=== PATIENT | male | born 1950 | race Caucasian/White ===

== ENCOUNTER 2023-01-10 08:09 | Inpatient (IN) ==
--- NOTE | 2022-12-21 10:26 | PAT Medication Instructions ---
Medication Instructions Date of Service December 21, 2022 Home Medications Medication Instructions Recorded cephalexin 500 mg capsule 500 mg PO BID #20 caps 06/18/22 diazepam 5 mg tablet 5 mg PO .COMPLEX #3 tabs 06/24/22 Medication List: amlodipine 10 mg tablet 10 mg PO PM aspirin 81 mg tablet,delayed release (Adult Aspirin Regimen) 81 mg PO PM atorvastatin 80 mg tablet 80 mg PO HS cholecalciferol (vitamin D3) 50 mcg (2,000 unit) tablet 1,000 units PO PM hydrochlorothiazide 25 mg tablet 25 mg PO PM lisinopril 40 mg tablet 40 mg PO PM metformin 1,000 mg tablet 500 mg PO QAM multivitamin (Multiple Vitamins tablet) 1 tab PO QAM omega-3 fatty acids 1,000 mg capsule 1,000 mg PO PM CBD drops 1 drp sublingual DIRECTED PRN Pain gabapentin 300 mg capsule 600 mg PO QAM gabapentin 300 mg capsule 900 mg PO HS gabapentin 300 mg capsule 900 mg PO PM cephalexin 500 mg capsule 500 mg PO BID diazepam 5 mg tablet 5 mg PO atenolol 25 mg tablet 75 mg PO PM cyanocobalamin (vitamin B-12) 1,000 mcg tablet 1,000 mcg PO PM empagliflozin 25 mg tablet (Jardiance) 25 mg PO DAILY fenofibrate nanocrystallized 145 mg tablet 145 mg PO DAILY hydrocodone 10 mg-acetaminophen 325 mg tablet 1 tab PO TID magnesium oxide 420 mg tablet 420 mg PO PM metformin 500 mg tablet 1,000 mg PO PM omeprazole 20 mg tablet,delayed release 20 mg PO QAM MEDICATION INSTRUCTIONS: Continue as directed diazepam 5 mg tablet 5 mg PO (if taking AM of surgery, take with small sip of water) cephalexin 500 mg capsule 500 mg PO BID (if taking AM of surgery, take with small sip of water) ASK your prescriber and surgeon aspirin 81 mg tablet,delayed release (Adult Aspirin Regimen) 81 mg PO PM STOP taking 2 weeks before surgery omega-3 fatty acids 1,000 mg capsule 1,000 mg PO PM STOP taking 24 hours before surgery fenofibrate nanocrystallized 145 mg tablet 145 mg PO DAILY DO NOT take the morning of surgery metformin 1,000 mg tablet 500 mg PO QAM multivitamin (Multiple Vitamins tablet) 1 tab PO QAM CBD drops 1 drp sublingual DIRECTED PRN Pain Take morning of surgery With a small sip of water, OTHERWISE NOTHING TO EAT OR DRINK AFTER MIDNIGHT: omeprazole 20 mg tablet,delayed release 20 mg PO QAM hydrocodone 10 mg-acetaminophen 325 mg tablet 1 tab PO TID gabapentin 300 mg capsule 600 mg PO QAM Take evening before surgery atorvastatin 80 mg tablet 80 mg PO HS cholecalciferol (vitamin D3) 50 mcg (2,000 unit) tablet 1,000 units PO PM hydrochlorothiazide 25 mg tablet 25 mg PO PM lisinopril 40 mg tablet 40 mg PO PM magnesium oxide 420 mg tablet 420 mg PO PM gabapentin 300 mg capsule 900 mg PO HS gabapentin 300 mg capsule 900 mg PO PM metformin 500 mg tablet 1,000 mg PO PM atenolol 25 mg tablet 75 mg PO PM cyanocobalamin (vitamin B-12) 1,000 mcg tablet 1,000 mcg PO PM amlodipine 10 mg tablet 10 mg PO PM hydrocodone 10 mg-acetaminophen 325 mg tablet 1 tab PO TID Other Notes STOP 3 DAYS BEFORE SURGERY: empagliflozin 25 mg tablet (Jardiance) 25 mg PO DAILY If you have any questions please call us at [phone] or [phone] or [phone] or [phone]
--- NOTE | 2022-12-27 11:15 | Anesthesiology Consultation ---
Date of Service December 27, 2022 Assessment & Plan (1) Encounter for pre-operative examination: Plan - check BSG am DOS. - anticipated difficult intubation: moderately limited cervical spine extension s/p cervical spine surgery, Mallampati 3 airway with small oral opening. - awaiting surgeon ordered medical clearance 12/29/22 [facility]. Creatinine 1.7 and A1c. PAT testing to be faxed to that office. - Per supervisor kennel on 12/17/2022: No known infectious disease contacts, current infectious disease symptoms in past 10 days or COVID positive test result in the past 90 days. Chart Review Chart Review: Pending: Refer to Additional Notes / Consult section and Patient NOT seen in Pre Admission Testing Teaching & Discussion Pre-Anesthesia Teaching/Discussion Notes: Instructed NPO after midnight before surgery, except medications with 15 cc of water. Medication instructions provided according to the PAT guidelines. History Surgery Operation Date: 01/10/23 07:45 Proposed Procedures p L3-L4 Decompression and Fusion with Spinal Cord Monitoring - Efra Blanco, Height/Weight Height: 6 ft Weight: 96.5 kg Allergies Allergy/AdvReac Type Severity Reaction Status Date / Time No Known Allergies Allergy Mild Verified 12/17/22 11:12 Medications Home Medications Medication Instructions Recorded Confirmed Last Taken amlodipine 10 mg tablet 10 mg PO PM 10/23/18 12/17/22 Unknown aspirin 81 mg tablet,delayed 81 mg PO PM 10/23/18 12/17/22 Unknown release (Adult Aspirin Regimen) atorvastatin 80 mg tablet 80 mg PO HS 10/23/18 12/17/22 Unknown cholecalciferol (vitamin D3) 50 1,000 units PO PM 10/23/18 12/17/22 Unknown mcg (2,000 unit) tablet hydrochlorothiazide 25 mg tablet 25 mg PO PM 10/23/18 12/17/22 Unknown lisinopril 40 mg tablet 40 mg PO PM 10/23/18 12/17/22 Unknown multivitamin (Multiple Vitamins 1 tab PO QAM 10/23/18 12/17/22 Unknown tablet) omega-3 fatty acids 1,000 mg 1,000 mg PO PM 10/23/18 12/17/22 Unknown capsule CBD drops 1 drp sublingual DIRECTED PRN 06/12/21 12/17/22 Unknown Pain gabapentin 300 mg capsule 600 mg PO QAM 06/12/21 12/17/22 Unknown gabapentin 300 mg capsule 900 mg PO HS 06/12/21 12/17/22 Unknown gabapentin 300 mg capsule 900 mg PO PM 07/29/21 12/17/22 Unknown cephalexin 500 mg capsule 500 mg PO BID #20 caps 06/18/22 12/17/22 Unknown diazepam 5 mg tablet 5 mg PO .COMPLEX #3 tabs 06/24/22 12/17/22 Unknown atenolol 25 mg tablet 75 mg PO PM 08/12/22 12/17/22 Unknown cyanocobalamin (vitamin B-12) 1,000 mcg PO PM 08/12/22 12/17/22 Unknown 1,000 mcg tablet empagliflozin 25 mg tablet 25 mg PO DAILY 08/12/22 12/17/22 Unknown (Jardiance) fenofibrate nanocrystallized 145 145 mg PO DAILY 08/12/22 12/17/22 Unknown mg tablet hydrocodone 10 mg-acetaminophen 1 tab PO TID 08/12/22 12/17/22 Unknown 325 mg tablet magnesium oxide 420 mg tablet 420 mg PO PM 08/12/22 12/17/22 Unknown metformin 500 mg tablet 500 mg PO BID 08/12/22 12/27/22 Unknown omeprazole 20 mg tablet,delayed 20 mg PO QAM 08/12/22 12/17/22 Unknown release Past Medical History Medical History (Updated 12/27/22 @ 11:41 by Alise Arenas, TATIANA) Aortic stenosis Mild valvular aortic stenosis (YUSUF 1.8 cm2, mean PG 13.5 mmHg) CAD (coronary artery disease) stents x2 (1999), does not follow with cardiology Cervical pain stable per pt, positional; s/p cervical spine surgery Diabetes mellitus, type 2 NIDDM Expected difficult intubation moderately limited cervical spine extension s/p cervical spine surgery, Mallampati 3 airway with small oral opening. GERD (gastroesophageal reflux disease) controlled, stable per pt Hip pain stable per pt History of heart attack 1999 > stents x2 HTN (hypertension) controlled, stable per pt Hyperlipemia Lumbar pain Pulmonary hypertension RVSP 30-40 mmHG Spinal stenosis Patient denies h/o stroke, seizures, heart failure, blood clots/DVTs or blood transfusions. Exercise / Class Metabolic Activity II 4-5 Yardwork/Stairs/Walk up hill (denies chest discomfort or shortness of breath with 1 FOS) Past Family History Family History Father Colon cancer Past Surgical History Surgical History (Updated 12/27/22 @ 11:32 by Alise Arenas PA-C) H/O cervical spine surgery limited ROM H/O Spinal surgery lumbar fusion History of appendectomy History of cardiac cath 1999 > stents x2 History of heart artery stent 2000 > stents x2 History of tooth extraction S/P insertion of spinal cord stimulator trial one only (since removed after 5 days) Past Anesthesia History No Hx of Anesthesia Complications and Other (pt denies anesthesia complications in family history, mother had hepatitis and passed during a surgery due to hepatic complications per pt) History of PONV No Hx of PONV and No Hx of Motion Sickness Social History Smoking Status: Current every day smoker (-advised) tobacco type: cigarettes Smoking cigarettes per day: 2 ppd Do You Dip or Chew Tobacco: No Hx Alcohol Use: Yes Alcohol type: beer alcohol intake frequency: holidays/special occasions only Hx Substance Use: Yes substance use type: marijuana Substance Use Type Other:: marijuana > "special occasions"-advised Review of Systems Patient denies chest pain, shortness of breath, dyspnea on exertion, snoring, witnessed apneas, fever, chills, cough, wheezing, or palpitations. Physical Exam Vital Signs Vitals BP 132/74 P 50 TEMP 98.4 SP02 97% on RA RESP 17 Physical Patient resting comfortably in chair in no acute distress, alert and oriented, responding appropriately throughout visit Moderately limited cervical extension range of motion without pain TMD 3.5 finger breadths Mallampati Score 3, small oral opening Dentition: edentulous Lungs: normal respiratory effort. Good air movement, clear throughout to auscultation, no adventitious breath sounds Cardiac: regular rate and rhythm, 2/6 systolic murmur, no gallops or rubs Carotid arteries: negative bruit bilat Lab Results Anesthesia Preop Results Results Anesthesia Widget: WBC 7.44 K/ul (4.8-10.8) 12/27/22 Hgb 16.4 g/dl (14.0-18.0) 12/27/22 Hct 48.1 % (42.0-52.0) 12/27/22 Plt 399 K/uL (130-400) 12/27/22 Na 138 mmol/L (136-145) 12/27/22 K 4.6 mmol/L (3.5-5.1) 12/27/22 Cl 103 mmol/L (98-107) 12/27/22 CO2 26 mmol/L (21-32) 12/27/22 BUN 31 mg/dl (6-23) H 12/27/22 Creat 1.70 mg/dl (0.6-1.4) H 12/27/22 Glucose Level 205 mg/dl (70-99(Fasting)) H 12/27/22 PT 11.3 Seconds (9.0-12.0) 12/27/22 PTT 27.6 Seconds (21.0-31.0) 12/27/22 INR 1.0 (0.9-1.1) 12/27/22 HA1c 7.9 % (4.5-5.6) H 12/27/22 Urine Color Yellow 12/27/22 Urine Appearance Clear (Clear) 12/27/22 Urine pH 6.5 (4.5-7.5) 12/27/22 Urine Specific [place] 1.029 (1.000-1.030) 12/27/22 Urine Protein Negative (Negative) 12/27/22 Urine Glucose (UA) 3+ (Negative) H 12/27/22 Urine Ketones Negative (Negative) 12/27/22 Urine Blood 2+ (Negative) H 12/27/22 Urine Nitrite Negative (Negative) 12/27/22 Urine Bilirubin Negative (Negative) 12/27/22 Urine Urobilinogen Negative (Negative) 12/27/22 Urine Leukocyte Esterase Negative (Negative) 12/27/22 Urine WBC (Auto) 0 /hpf (0-5) 12/27/22 Urine RBC (Auto) 5-10 /hpf (0-4) H 12/27/22 Urine Hyaline Casts (Auto) 0 /lpf (0-5) 12/27/22 Urine Epithelial Cells (Auto) 0-5 /lpf (0-5) 12/27/22 Urine Bacteria (Auto) Negative (Negative) 12/27/22 Blood Type A Positive 12/27/22 Antibody Screen NEGATIVE 12/27/22 Testing Electrocardiogram Date: 12/27/22 Sinus bradycardia, rate 47 bpm Minimal voltage criteria for LVH, may be normal variant Chest X-Ray Date: 12/27/22 No acute process. Echocardiogram Date: 10/26/17 EF 65-70% Mild cLVH Mildly dilated RV Mild valvular aortic stenosis (YUSUF 1.8 cm2, mean PG 13.5 mmHg) Moderate aortic regurgitation Mild mitral regurgitation Mild pulmonary hypertension RVSP elevated at 30-40 mmHg
[~2023-01-10 08:09] MED LIST: ACETAMINOPHEN 500 MG TAB PO SCH; CeleBREX 200 MG CAP PO SCH; GABAPENTIN 300 MG CAP PO SCH; KETAMINE 50 MG/5 ML SYRINGE ONE; LR 15ML/HR IV SCH; LR 60ML/HR IV SCH; ceFAZolin 2000MG 2,000 MG/15 ML SYR IV SCH
[2023-01-10] MEDS ORDERED: ePHEDrine sulfate 50 MG/ML AMP IV PRN (09:14)
[2023-01-10] MEDS ORDERED: ATROPINE SULFATE 0.1 MG/ML 10ML SYR IV PRN (09:14)
[2023-01-10] MEDS ORDERED: ONDANSETRON INJ 2 MG/ML 2 ML VIAL IV PRN ×2 (09:14→14:32)
--- NOTE | 2023-01-10 09:18 | History & Physical Bridge Note ---
Date of Service January 10, 2023 History & Physical Bridge Note I have examined the patient, reviewed the History & Physical and in the interval since the performance of the History & Physical I have noted the following changes of clinical significance: no changes noted
--- NOTE | 2023-01-10 09:19 | History & Physical Report ---
Date of Service January 10, 2023 Assessment & Plan (1) Lumbar spinal stenosis: Plan: L3-L4 decompression and fusion History of Present Illness Chief Complaint: Back and bilateral leg pain Primary Care Provider: [facility] This is a 72-year-old male who presents with chronic persistent back and leg pain after failing since course of nonoperative care is here for surgical invention. Allergies Allergy/AdvReac Type Severity Reaction Status Date / Time No Known Allergies Allergy Mild Verified 01/10/23 08:32 Home Medications Medication Instructions Recorded Confirmed Type amlodipine 10 mg tablet 10 mg PO PM 10/23/18 12/17/22 History aspirin 81 mg tablet,delayed 81 mg PO PM 10/23/18 12/17/22 History release (Adult Aspirin Regimen) atorvastatin 80 mg tablet 80 mg PO HS 10/23/18 12/17/22 History cholecalciferol (vitamin D3) 50 1,000 units PO PM 10/23/18 12/17/22 History mcg (2,000 unit) tablet hydrochlorothiazide 25 mg tablet 25 mg PO PM 10/23/18 01/10/23 History lisinopril 40 mg tablet 40 mg PO PM 10/23/18 01/10/23 History multivitamin (Multiple Vitamins 1 tab PO QAM 10/23/18 01/10/23 History tablet) omega-3 fatty acids 1,000 mg 1,000 mg PO PM 10/23/18 01/10/23 History capsule CBD drops 1 drp sublingual DIRECTED PRN 06/12/21 12/17/22 History Pain gabapentin 300 mg capsule 600 mg PO QAM 06/12/21 01/10/23 History gabapentin 300 mg capsule 900 mg PO HS 06/12/21 01/10/23 History gabapentin 300 mg capsule 900 mg PO PM 07/29/21 01/10/23 History cephalexin 500 mg capsule 500 mg PO BID #20 caps 06/18/22 12/17/22 Rx diazepam 5 mg tablet 5 mg PO .COMPLEX #3 tabs 06/24/22 12/17/22 Rx atenolol 25 mg tablet 75 mg PO PM 08/12/22 12/17/22 History cyanocobalamin (vitamin B-12) 1,000 mcg PO PM 08/12/22 12/17/22 History 1,000 mcg tablet empagliflozin 25 mg tablet 25 mg PO DAILY 08/12/22 01/10/23 History (Jardiance) fenofibrate nanocrystallized 145 145 mg PO DAILY 08/12/22 01/10/23 History mg tablet hydrocodone 10 mg-acetaminophen 1 tab PO TID 08/12/22 01/10/23 History 325 mg tablet magnesium oxide 420 mg tablet 420 mg PO PM 08/12/22 01/10/23 History metformin 500 mg tablet 500 mg PO BID 08/12/22 01/10/23 History omeprazole 20 mg tablet,delayed 20 mg PO QAM 08/12/22 01/10/23 History release Past Med/Surg History Medical History Expected difficult intubation moderately limited cervical spine extension s/p cervical spine surgery, Mallampati 3 airway with small oral opening. Pulmonary hypertension RVSP 30-40 mmHG Aortic stenosis Mild valvular aortic stenosis (YUSUF 1.8 cm2, mean PG 13.5 mmHg) CAD (coronary artery disease) stents x2 (1999), does not follow with cardiology Spinal stenosis GERD (gastroesophageal reflux disease) controlled, stable per pt Diabetes mellitus, type 2 NIDDM History of heart attack 1999 > stents x2 Cervical pain stable per pt, positional; s/p cervical spine surgery Hyperlipemia HTN (hypertension) controlled, stable per pt Hip pain stable per pt Lumbar pain Surgical History History of tooth extraction History of heart artery stent 2000 > stents x2 History of cardiac cath 1999 > stents x2 S/P insertion of spinal cord stimulator trial one only (since removed after 5 days) H/O cervical spine surgery limited ROM History of appendectomy H/O Spinal surgery lumbar fusion Family History Father Colon cancer Social History Smoking Status: Current every day smoker (-advised) Cigarettes Per Day: 2 ppd; Second Hand Exposure: No; Do You Dip or Chew Tobacco: No; Tobacco Cessation Education Requested by Patient: No Hx Alcohol Use: Yes Alcohol type: beer Hx Substance Use: Yes Substance Use Type Other:: marijuana > "special occasions"-advised Preferred Language: Belgian Communication Ability: Effective Hearing Ability: Normal Internet Retailer Required: No Beliefs That Will Affect Care: None marital status: Current Living Situation: Spouse current occupational status: retired Feels Safe at Home: Yes Safety Concerns: Feels Safe At This Time Assistive Devices: Cane, Denture - Upper, Denture - Lower and Glasses Assistive Devices Comment: cane prn Physical Exam Physical Exam: Patient is alert and oriented Heart regular rhythm Lungs clear Results & Data Results & Data Vital Signs (Past 12 Hours) Vital Signs Temp Pulse Resp BP Pulse Ox O2 Del Method 01/10/23 08:38 36.4 C L 46 L 20 173/81 H 96 Room Air
[2023-01-10] MEDS ORDERED: fentaNYL citrate PF 100 MCG/2 ML VIAL ONE (09:22)
[2023-01-10] MEDS ORDERED: MIDAZOLAM HCL 1 MG/ML 2ML VIAL ONE (09:22)
[2023-01-10] MEDS ORDERED: BUPIVACAINE/EPINEPHRINE 0.25% 1:200,000 30 ML VIAL ONE (09:35)
[2023-01-10] MEDS ORDERED: ceFAZolin 330 MG/ML 1 GM VIAL ONE (09:36)
[2023-01-10] MEDS ORDERED: GLYCOPYRROLATE 0.2 MG/ML VIAL ONE (10:32)
[2023-01-10] MEDS ORDERED: ONDANSETRON INJ 2 MG/ML 2 ML VIAL ONE (10:32)
[2023-01-10] MEDS ORDERED: NEOSTIGMINE METHYLSULFATE 1 MG/ML 10ML VIAL ONE (10:32)
[2023-01-10] MEDS ORDERED: PROPOFOL IV EMULSION 10 MG/ML 20 ML VIAL IV ONE (10:32)
[2023-01-10] MEDS ORDERED: SUCCINYLCHOLINE CHLORIDE 20 MG/ML 10 ML VIAL IV ONE (10:32)
[2023-01-10] MEDS ORDERED: PHENYLEPHRINE HCL 10 MG/ML VIAL ONE (10:32)
[2023-01-10] MEDS ORDERED: DEXAMETHASONE SOD INJ 4 MG/ML VIAL ONE (10:32)
[2023-01-10] MEDS ORDERED: ePHEDrine sulfate 50 MG/ML AMP ONE (10:32)
[2023-01-10] MEDS ORDERED: LIDOCAINE 2% 2 ML VIAL/AMP(20MG/ML) INFIL ONE (10:32)
[2023-01-10] MEDS ORDERED: ROCURONIUM BROMIDE 10 MG/ML 5 ML VIAL IV ONE ×2 (10:33→10:35)
[2023-01-10] MEDS ORDERED: SUGAMMADEX SODIUM 200 MG/2 ML VIAL IV ONE (10:33)
[2023-01-10] MEDS ORDERED: PHENYLEPHRINE 100MCG/ML 10ML SYR IV ONE (10:36)
[2023-01-10] MEDS ORDERED: FLOSEAL HEMOSTATIC MATRIX 10ML TOP ONE (10:48)
--- NOTE | 2023-01-10 11:40 | Operative Report ---
Post Operative Report Pre & Post Diagnosis Operation Date: 01/10/23 09:35 Pre-Op Diagnosis: Lumbar spinal stenosis with neurogenic claudication Post-Op Diagnosis: Same I identified the patient and participated in the time-out.: Yes Procedure Operation Date: 01/10/23 09:35 Actual Procedures #1 lumbar decompression bilaterally facetectomies and foraminotomies L2-L3 L3- L4. #2 posterior spinal fusion L3-L4 per #3 placed posterior instrumentation L3-4. #4 interbody fusion L3-L4. #5 placement of Spira 12 x 26 mm at L3-L4 vertebra 6 placement locally harvested morselized autograft in the posterior gutters. #7 placement I factor interbody space and infuse collagen sponge, mass graft and posterior gutters. Surgeon Efra Blanco DO Managing Director Linda Agustin Estimated Blood Loss 200 Findings Consistent with Post-Op Diagnosis Specimens None Indications This is a 59-year-old male who presents bones diagnosis of failing since course of nonoperative care is here for surgical invention. Description of Procedure Patient was met with identified informed consent obtained. Patient was then taken to the operative suite underwent ablation placed in a prone position to check stable topicals and frame. All bony promises well-padded eyes inspected to ensure no external pressure placed upon up at this point the lumbar spine was prepped and draped in normal sterile fashion. Sharp dissection with the assistance of Bovie cautery form down to and exposing the lamina transverse pr ocesses of L3-L4. From caudal cephalad fashion complete laminectomy L3 partial and active L2 was performed including bilateral male facetectomies and foraminotomies addressing severe spinal stenosis. Pedicle screws were then placed in L2-L3 bilaterally with assistance of fluoroscopy and the properly sized ofelia placed. By way of transforaminal approach on the right complete discectomy of L3-L4 was performed endplates guarded to subcortical bleeding bone and a 12 x 26 mm Spira cage with I factor tapped in position. The rods were then locked in final position bilaterally. The transverse processes of L3-L4 burred to subcortical bone. Infuse collagen sponge, mass graft and local graft placed in the posterior gutters. 15 round DO drain inserted. The incision was then closed with 1 Vicryl and fascia 2-0 Vicryl subcutaneously and Fortical for final skin closure. Steri-Strips sterile dressing placed. Patient waken taken PACU stable condition. Please note spinal cord monitoring was utilized at the procedure no changes noted. Lastly Linda Agustin was present at the entire surgeon with the patient positioning complex portion of the surgery and final skin closure. I attest to the content of the Intraoperative Record and any orders documented therein. Any exceptions are noted below.
[2023-01-10] MEDS: HYDROmorphone INJ 2 MG/ML SYR/VIAL IV PRN ×3 (12:10→12:25)
--- NOTE | 2023-01-10 12:14 | Fluoroscopy Report ---
FL lumbar spine 2-3V CLINICAL HISTORY: L3-L4 DECOMP/FUSION TECHNIQUE: 2 views were obtained with the C-arm in the OR with the above procedure. Total fluoroscopy time was 16.5 seconds. Radiation dose was 11.97 mGy. Comparison: Comparison is made to MRI lumbar spine 09/03/2022 FINDINGS/IMPRESSION: Intraoperative images were obtained of L3-L4 discectomy and fusion. Please correlate with intraoperative fluoroscopy and operative report. ACT 112: Negative or not required by law. Electronically signed by: Miky Stover M.D. 01/10/2023 12:13 PM
--- NOTE | 2023-01-10 12:49 | Anesthesiology Progress Note ---
Date of Service January 10, 2023 Anesthesia Post Procedure Vital Signs Vital Signs: Temp Pulse Resp BP BP Pulse Ox O2 Del Method 01/10/23 12:40 53 L 12 125/58 L 92 Nasal Cannula 01/10/23 12:30 62 12 133/64 94 Room Air 01/10/23 12:20 62 16 139/69 94 Room Air 01/10/23 12:10 61 15 96/55 L 95 Oxymask 01/10/23 12:00 62 12 137/67 100 Oxymask 01/10/23 11:55 60 12 138/68 100 Oxymask 01/10/23 11:49 36.2 C L 62 12 157/66 H 100 Oxymask 01/10/23 08:38 36.4 C L 46 L 20 173/81 H 96 Room Air O2 Flow Rate 01/10/23 12:40 2 01/10/23 12:30 01/10/23 12:20 01/10/23 12:10 2 01/10/23 12:00 3 01/10/23 11:55 6 01/10/23 11:49 6 01/10/23 08:38 Pain Intensity Back: Pain Intensity: 5 Transfer of Care Handoff Completed per policy Notes Mental Status: alert / awake / arousable Patient Amnestic to Procedure: Yes Nausea / Vomiting: adequately controlled Pain: adequately controlled Airway Patency, RR, SpO2: stable & adequate BP & HR: stable & adequate Hydration State: stable & adequate Anesthetic Complications: no major complications apparent and Pt Satisfied with anesthetic care
[2023-01-10] MEDS ORDERED: DO NOT ADMINISTER PNEUMOCOCCAL VACCINE PRN (14:32)
[2023-01-10] MEDS ORDERED: hydrOXYzine HCl 25 MG TAB PO PRN (14:32)
[2023-01-10] MEDS ORDERED: SOD PHOSPHATE/SOD BIPHOSPHATE ENEMA 132 ML BTL PR PRN (14:32)
[2023-01-10] MEDS ORDERED: diphenhydrAMINE Capsule 25 MG CAP PO PRN (14:32)
[2023-01-10] MEDS ORDERED: LORazepam 0.5 MG in SYRINGE 0.25 ML IV PRN (14:32)
[2023-01-10] MEDS ORDERED: ACETAMINOPHEN 500 MG TAB PO PRN (14:32)
[2023-01-10] MEDS ORDERED: ONDANSETRON 4 MG OD TAB PO PRN (14:32)
[2023-01-10] MEDS ORDERED: NALOXONE HCL 0.4 MG/1 ML VIAL/CARP IV PRN (14:32)
[2023-01-10] MEDS ORDERED: DO NOT ADMINISTER FLU VACCINE PRN (14:32)
[2023-01-10] MEDS ORDERED: ALUMINUM/MAGNESIUM SUSP 30 ML UDC PO PRN (14:32)
[2023-01-10] MEDS ORDERED: FAMOTIDINE 20 MG TAB PO PRN (14:32)
[2023-01-10] MEDS ORDERED: ACETAMINOPHEN 1,000 MG/100 ML VIAL IV PRN (14:32)
[2023-01-10] MEDS ORDERED: oxyCODONE HCL IR 5 MG TAB (IMMEDIATE RELEASE) PO PRN (14:32)
[2023-01-10] MEDS ORDERED: MAGNESIUM HYDROXIDE SUSP 30 ML UDC PO PRN (14:32)
[2023-01-10] MEDS ORDERED: LORazepam 0.5 MG TAB PO PRN (14:32)
[2023-01-10] MEDS ORDERED: HYDROmorphone INJ 1 MG/ML SYRINGE IV PRN (14:32)
[2023-01-10] MEDS ORDERED: HYDROmorphone INJ 0.5 MG/0.5 ML SYR IV PRN (14:32)
[2023-01-10] MEDS ORDERED: METOCLOPRAMIDE HCL INJ 5 MG/ML 2 ML VIAL IV PRN (14:32)
[2023-01-10] MEDS ORDERED: PROMETHAZINE HCL 12.5 MG in SODIUM CHLORIDE 0.9% 50 ML IV PRN (14:32)
[2023-01-10] MEDS: SODIUM CHLORIDE 0.9% 1,000 ML IV SCH (16:14)
--- NOTE | 2023-01-10 16:19 | Consultation ---
Date of Consultation January 10, 2023 Assessment & Plan (1) Lumbar spinal stenosis: (2) Diabetes mellitus, type 2: (3) CAD (coronary artery disease): (4) Pulmonary hypertension: (5) Aortic stenosis: (6) Tobacco abuse: (7) HTN (hypertension): (8) Hyperlipemia: Plan Mr. Nobles is a 72 year old male that presents to the [facility] for an elective decompression and fusion surgery under the care of Dr. Blanco after failed conservative outpatient therapy for lumbar spinal stenosis with neurogenic claudication. He underwent an L2-L3; L3-L4 decompression and fusion. Additional PMH includes: NIDDM2, HTN, HLD, tobacco use, and GERD. Additional PMH includes previous AMI s/p stent placement x2 in 1999. Pt sitting upright in his hospital bed in no apparent distress. He just finished eating a clear liquid diet without any symptoms, including nausea. Pt is passing flatulence. Denies CHENG, neuropathy, dizziness, CP, SOB, abdominal pain, recent falls or trauma. Lumbar spinal stenosis: POD# 0 s/p decompression/fuson L2-L3; L3-L4 with Dr. Blanco. Per ortho for pain control, wound care, anticoagulation and activities. Monitor H&H, pre op Hgb 16.4 on 12/27/22 continue incentive spirometry PT/OT when appropriate CAD: H/O AMI s/p stents x2 Chronic stable stents were placed in 1999 Takes a baby ASA; continue HTN: chronic stable Takes HCTZ, Atenolol, Lisinopril, and Amlodipine; continue HLD: chronic stable takes atorvastatin; continue DM2: Chronic stable Takes Metformin and Jardiance; hold while inpt Place on SSI ACHS while inpt and resume home meds on DC Tobacco use: chronic stable 1 ppd at most; declines Nicotine patch Disposition: PCP: [place] Code status: Full code VTE Prophylaxis: per admitting team I spent a total of 60 minutes coordinating, documenting, and providing care for this patient excluding time spent in the performance of separately billed ser vices. All of the aforementioned completed while collaborating with the assigned attending physician for a full treatment plan. Please see their addendum for further details. Supervising Physician Co-Signing Physician Notes I have seen and examined the patient and have discussed the case with the provider above. I agree with the assessment and plan as stated. Sal[place], DO History of Present Illness Requesting Physician: Dr. Blanco Reason for Consultation: post operative medical management Attending Physician: Efra Blanco DO History of Present Illness Mr. Nobles is a 72 year old male that presents to the [facility] for an elective decompression and fusion surgery under the care of Dr. Blanco after failed conservative outpatient therapy for lumbar spinal stenosis with neurogenic claudication. He underwent an L2-L3; L3-L4 decompression and fusion. Additional PMH includes: NIDDM2, HTN, HLD, tobacco use, and GERD. Additional PMH includes previous AMI s/p stent placement x2 in 1999. Pt sitting upright in his hospital bed in no apparent distress. He just finished eating a clear liquid diet without any symptoms, including nausea. Pt is passing flatulence. Denies CHENG, neuropathy, dizziness, CP, SOB, abdominal pain, recent falls or trauma. [facility] Hospitalist Service was consulted for post operative medical management. Thank you kindly for consulting us. We are available 20/09 via [place] Text for any questions or concerns. Allergies Allergy/AdvReac Type Severity Reaction Status Date / Time No Known Allergies Allergy Mild Verified 01/10/23 08:32 Home Medications Medication Instructions Recorded Confirmed Type amlodipine 10 mg tablet 10 mg PO PM 10/23/18 01/10/23 History aspirin 81 mg tablet,delayed 81 mg PO PM 10/23/18 01/10/23 History release (Adult Aspirin Regimen) atorvastatin 80 mg tablet 80 mg PO HS 10/23/18 01/10/23 History cholecalciferol (vitamin D3) 50 1,000 units PO PM 10/23/18 01/10/23 History mcg (2,000 unit) tablet hydrochlorothiazide 25 mg tablet 25 mg PO PM 10/23/18 01/10/23 History lisinopril 40 mg tablet 40 mg PO PM 10/23/18 01/10/23 History multivitamin (Multiple Vitamins 1 tab PO QAM 10/23/18 01/10/23 History tablet) omega-3 fatty acids 1,000 mg 1,000 mg PO PM 10/23/18 01/10/23 History capsule CBD drops 1 drp sublingual DIRECTED PRN 06/12/21 01/10/23 History Pain gabapentin 300 mg capsule 600 mg PO QAM 06/12/21 01/10/23 History gabapentin 300 mg capsule 900 mg PO HS 06/12/21 01/10/23 History gabapentin 300 mg capsule 900 mg PO PM 07/29/21 01/10/23 History cephalexin 500 mg capsule 500 mg PO BID #20 caps 06/18/22 01/10/23 Rx diazepam 5 mg tablet 5 mg PO .COMPLEX #3 tabs 06/24/22 01/10/23 Rx atenolol 25 mg tablet 75 mg PO PM 08/12/22 01/10/23 History cyanocobalamin (vitamin B-12) 1,000 mcg PO PM 08/12/22 01/10/23 History 1,000 mcg tablet empagliflozin 25 mg tablet 25 mg PO DAILY 08/12/22 01/10/23 History (Jardiance) fenofibrate nanocrystallized 145 145 mg PO DAILY 08/12/22 01/10/23 History mg tablet hydrocodone 10 mg-acetaminophen 1 tab PO TID 08/12/22 01/10/23 History 325 mg tablet magnesium oxide 420 mg tablet 420 mg PO PM 08/12/22 01/10/23 History metformin 500 mg tablet 500 mg PO BID 08/12/22 01/10/23 History omeprazole 20 mg tablet,delayed 20 mg PO QAM 08/12/22 01/10/23 History release Patient History Medical History (Updated 01/10/23 @ 16:15 by DAWIT Hanson) Expected difficult intubation moderately limited cervical spine extension s/p cervical spine surgery, Mallampati 3 airway with small oral opening. Pulmonary hypertension RVSP 30-40 mmHG Aortic stenosis Mild valvular aortic stenosis (YUSUF 1.8 cm2, mean PG 13.5 mmHg) CAD (coronary artery disease) stents x2 (1999), does not follow with cardiology Spinal stenosis GERD (gastroesophageal reflux disease) controlled, stable per pt Diabetes mellitus, type 2 NIDDM History of heart attack 1999 > stents x2 Cervical pain stable per pt, positional; s/p cervical spine surgery Hyperlipemia HTN (hypertension) controlled, stable per pt Hip pain stable per pt Lumbar pain Surgical History History of tooth extraction History of heart artery stent 1999 > stents x2 History of cardiac cath 1999 > stents x2 S/P insertion of spinal cord stimulator trial one only (since removed after 5 days) H/O cervical spine surgery limited ROM History of appendectomy H/O Spinal surgery lumbar fusion Family History Father Colon cancer Social History Smoking Status: Current every day smoker Tobacco Type: Cigarettes Cigarettes Per Day: 2 ppd; Second Hand Exposure: No; Do You Dip or Chew Tobacco: No; Tobacco Cessation Education Requested by Patient: No Hx Alcohol Use: Yes Alcohol type: beer, wine and hard liquor Hx Substance Use: No Preferred Language: Guyanese Communication Ability: Effective Hearing Ability: Normal Hose Seamer Required: No Beliefs That Will Affect Care: None marital status: Current Living Situation: Spouse current occupational status: retired Feels Safe at Home: Yes Safety Concerns: Feels Safe At This Time Assistive Devices: None, Denture - Upper, Denture - Lower and Glasses Assistive Devices Comment: cane prn Review of Systems Review of Systems: Neuro: (-) Falls, trauma, slurred speech HEENT: (-) CHENG, dizziness, dysphagia, visual or auditory changes CV: (-) CP, palpitations, swelling Resp: (-) SOB GI: (-) appetite changes, N/V/D, bowel changes : (-) urinary changes Skin: (-) rashes Psych: (-) anxiety, depression Physical Exam Physical Exam: Neuro: AAOx4, PERRLA, no aphagia, memory changes, CNII-XII grossly intact HEENT: head normocephalic, moist mucus membranes CV: S1/S2, (-) M/G/R, (-) edema, cap refill < 3 seconds DO drain x1 Resp: Lungs CTA in all hernandez. On RA GI: Abdomen S/NT/ND, Ax4 bowel sounds, (-) CVA tenderness Musculoskeletal: 5/5 B/L UE strength, 5/5 B/L LE strength. No gait disturbance Skin: (-) rashes , (-) erythema.vertical surgical incision covered with gauze and abd pad with dressing; no overt drainage/C/D/I Psych: euthymic mood Results & Data Vital Signs (Past 12 Hours) Vital Signs Temp Pulse Pulse Resp BP BP Pulse Ox 01/10/23 16:00 36.4 C L 71 18 132/70 94 01/10/23 15:39 36.4 C L 01/10/23 15:00 59 L 14 134/64 94 01/10/23 14:00 62 14 128/52 L 93 01/10/23 13:45 59 L 13 122/64 93 01/10/23 13:30 55 L 13 122/56 L 92 01/10/23 13:15 55 L 12 114/56 L 92 01/10/23 13:00 54 L 12 119/53 L 92 01/10/23 12:50 55 L 13 123/57 L 92 01/10/23 12:40 53 L 12 125/58 L 92 01/10/23 12:30 62 12 133/64 94 01/10/23 12:20 62 16 139/69 94 01/10/23 12:10 61 15 96/55 L 95 01/10/23 12:00 62 12 137/67 100 01/10/23 11:55 60 12 138/68 100 01/10/23 11:49 36.2 C L 62 12 157/66 H 100 01/10/23 08:38 36.4 C L 46 L 20 173/81 H 96 O2 Del Method O2 Flow Rate 01/10/23 16:00 Nasal Cannula 2 01/10/23 15:39 01/10/23 15:00 Nasal Cannula 2 01/10/23 14:00 Nasal Cannula 2 01/10/23 13:45 Nasal Cannula 2 01/10/23 13:30 Nasal Cannula 2 01/10/23 13:15 Nasal Cannula 2 01/10/23 13:00 Nasal Cannula 2 01/10/23 12:50 Nasal Cannula 2 01/10/23 12:40 Nasal Cannula 2 01/10/23 12:30 Room Air 01/10/23 12:20 Room Air 01/10/23 12:10 Oxymask 2 01/10/23 12:00 Oxymask 3 01/10/23 11:55 Oxymask 6 01/10/23 11:49 Oxymask 6 01/10/23 08:38 Room Air Diagnostic Findings Lumbar Spine X-Ray 01/10/23 00:00 FL lumbar spine 2-3V CLINICAL HISTORY: L3-L4 DECOMP/FUSION TECHNIQUE: 2 views were obtained with the C-arm in the OR with the above procedure. Total fluoroscopy time was 16.5 seconds. Radiation dose was 11.97 mGy. Comparison: Comparison is made to MRI lumbar spine 09/03/2022 FINDINGS/IMPRESSION: Intraoperative images were obtained of L3-L4 discectomy and fusion. Please correlate with intraoperative fluoroscopy and operative report. ACT 112: Negative or not required by law. Electronically signed by: Miky Stover M.D. 01/10/2023 12:13 PM
[2023-01-10] MEDS: GABAPENTIN 300 MG CAP PO SCH ×2 (18:10→20:59)
[2023-01-10] MEDS: ceFAZolin 2000MG 2,000 MG/15 ML SYR IV SCH (18:11)
[2023-01-10] MEDS: ATORVASTATIN 40 MG TAB PO SCH (20:34)
[2023-01-10] MEDS: amLODIPine BESYLATE 5 MG TAB PO SCH (20:35)
[2023-01-10] MEDS: lisinopril 40 MG TAB PO SCH (20:35)
[2023-01-10] MEDS: CHOLECALCIFEROL 1,000 UNITS 25 MCG TAB PO SCH (20:35)
[2023-01-10] MEDS: ASPIRIN 81 MG ECTAB PO SCH (20:35)
[2023-01-10] MEDS: MAGNESIUM OXIDE 400 MG TAB PO SCH (20:36)
[2023-01-10] MEDS: DOCUSATE SODIUM/SENNA 50/8.6MG TAB PO SCH (20:36)
[2023-01-10] MEDS: ATENOLOL 25 MG TABLET PO SCH (20:36)
[2023-01-10] MEDS: hydroCHLOROthiazide 25 MG TAB PO SCH (20:36)
[2023-01-10] MEDS: CYANOCOBALAMIN (B-12) 500 MCG TABLET PO SCH (20:37)
[2023-01-10] MEDS ORDERED: GLUCAGON FOR INJ 1 MG VIAL SQ PRN (20:53)
[2023-01-10] MEDS ORDERED: CARBOHYDRATES FOR HYPOGLYCEMIA PO PRN (20:53)
[2023-01-10] MEDS ORDERED: DEXTROSE 50% 50 ML SYRINGE IV PRN (20:53)
[2023-01-10] MEDS ORDERED: GLUCOSE 40% GEL 15 GM TUBE PO PRN (20:53)
[2023-01-10] MEDS ORDERED: GLUCOSE 10 TAB/TUBE PO PRN (20:53)
[2023-01-10] MEDS: INSULIN ASPART PER UNIT CHARGE SC SCH (21:03)
[2023-01-11] MEDS: SODIUM CHLORIDE 0.9% 1,000 ML IV SCH ×3 (00:15→11:49)
[2023-01-11] MEDS: ceFAZolin 2000MG 2,000 MG/15 ML SYR IV SCH (01:39)
[2023-01-11] MEDS: SIMETHICONE 80 MG CHEW PO PRN ×2 (03:09→11:22)
[2023-01-11] MEDS ORDERED: HYDROmorphone INJ 0.5 MG/0.5 ML SYR IV STA (04:55)
[2023-01-11] MEDS: POLYETHYLENE (MIRALAX) 17 GM PACK PO SCH ×3 (04:56→17:50)
[2023-01-11 07:22] LABS: Basophils # (auto) 0.03 K/uL (0.00-0.20); Basophils % (auto) 0.2 %; Eosinophils # (auto) 0.03 K/uL (0.00-0.50); Eosinophils % (auto) 0.2 %; Hematocrit (blood only) 42.4 % (42.0-52.0); Hemoglobin 14.2 g/dl (14.0-18.0); Immature Granulocytes # (auto) 0.08 K/uL (0.01-0.20); Immature Granulocytes % (auto) 0.4 %; Lymphocytes # (auto) 1.36 K/uL (1.20-3.40); Lymphocytes % (auto) 7.4 %; Mean Corpuscular Hemoglobin 29.3 pg (25.0-34.0); Mean Corpuscular Hgb Conc 33.5 g/dL (32.0-36.0); Mean Corpuscular Volume 87.4 fL (80.0-100.0); Mean Platelet Volume 9.8 fL (9.4-12.4); Monocytes # (auto) 1.18 K/uL (0.11-0.59); Monocytes % (auto) 6.4 %; Neutrophils # (auto) 15.71 K/uL (1.40-6.50); Neutrophils % (auto) 85.4 %; Platelet Count 328 K/uL (130-400); RDW Coefficient of Variation 14.1 % (11.5-14.5); RDW Standard Deviation 45.5 fL (36.4-46.3); Red Blood Count 4.85 M/uL (4.70-6.10); White Blood Count 18.39 K/ul (4.8-10.8)
[2023-01-11 07:41] LABS: BUN Creatinine Ratio 20.7 (10-20); Calcium 9.7 mg/dl (8.6-10.3); Creatinine Clr Calc Pharmacy 62.2 ml/min; Est GFR (African American) 61.2 ml/min; Est GFR (Non-African American) 52.8 ml/min; Potassium 3.6 mmol/L (3.5-5.1)
[2023-01-11] MEDS: PANTOprazole 40 MG TAB PO SCH (08:35)
[2023-01-11] MEDS: FENOFIBRATE NANOCRYSTALLIZED 145 MG TABLET PO SCH (08:35)
[2023-01-11] MEDS: GABAPENTIN 300 MG CAP PO SCH ×3 (08:35→22:38)
[2023-01-11] MEDS: MULTIVITAMIN TAB PO SCH (08:35)
[2023-01-11] MEDS: INSULIN ASPART PER UNIT CHARGE SC SCH ×4 (08:38→21:01)
[2023-01-11] MEDS ORDERED: EMPAGLIFLOZIN 25 MG TAB PO SCH (09:00)
--- NOTE | 2023-01-11 09:27 | XRay Report ---
XR KUB/Abdomen 1 view CLINICAL HISTORY: n/v TECHNIQUE: 1 view of the abdomen was obtained. Comparison: None available at the time of this dictation. FINDINGS: Lung bases are unremarkable. Posterior fixation hardware is seen spanning L3-L4. There is a paucity o f small bowel gas. Small stool burden is seen. IMPRESSION: No radiographic evidence of small bowel obstruction. ACT 112: Negative or not required by law. Electronically signed by: Miky Stover M.D. 01/11/2023 9:25 AM
--- NOTE | 2023-01-11 09:40 | Orthopedic Progress Note ---
Date of Service January 11, 2023 Assessment & Plan (1) Lumbar spinal stenosis: Plan: At this time initiate physical therapy monitor his DO output of light discharge over the next few days. Admission and Anticipated Discharge Date Admission Date: January 10, 2023 Subjective Back pain controlled leg pain improved Physical Exam Physical Exam: Patient is comfortable. Discussed when to testing. Results & Data Vital Signs (Past 12 Hours) Vital Signs Temp Pulse Resp BP Pulse Ox O2 Del Method 01/11/23 07:47 36.8 C 58 L 16 180/70 H 89 L Room Air 01/11/23 03:42 36.5 C 52 L 20 168/73 H 95 Room Air 01/11/23 02:35 36.5 C 52 L 18 184/70 H 95 Room Air
[2023-01-11] MEDS: dexAMETHasone 6 MG in SYRINGE 0 ML IV SCH (09:50)
--- NOTE | 2023-01-11 16:22 | Hospitalist Progress Note ---
Date of Service January 11, 2023 Assessment & Plan (1) Lumbar spinal stenosis: (2) Diabetes mellitus, type 2: (3) CAD (coronary artery disease): (4) Pulmonary hypertension: (5) Aortic stenosis: (6) Tobacco abuse: (7) HTN (hypertension): (8) Hyperlipemia: Plan Mr. Nobles is a 72 year old male that presents to the [facility] for an elective decompression and fusion surgery under the care of Dr. Blanco after failed conservative outpatient therapy for lumbar spinal stenosis with neurogenic claudication. He underwent an L2-L3; L3-L4 decompression and fusion. Additional PMH includes: NIDDM2, HTN, HLD, tobacco use, and GERD. Additional PMH includes previous AMI s/p stent placement x2 in 1999. Pt sitting upright in his hospital bed in no apparent distress. He just finished eating a clear liquid diet without any symptoms, including nausea. Pt is passing flatulence. Denies CHENG, neuropathy, dizziness, CP, SOB, abdominal pain, recent falls or trauma. Lumbar spinal stenosis: Operative day 01/10/2023 s/p decompression/fuson L2-L3; L3-L4 with Dr. Blanco. Per ortho for pain control, wound care, anticoagulation and activities. Monitor H&H, pre op Hgb 16.4 on 12/27/22 continue incentive spirometry PT/OT when appropriate Remains stable following procedure with minimal back pain and is still having significant drainage Management will be as per spine surgeon Hemoglobin remains stable and white count is minimally elevated due to steroid Electrolytes and kidney function are normal We will monitor labs Abdominal pain/discomfort Clinically abdomen is distended but nontender and soft KUB did not show any obstruction Will give MiraLAX for bowel movement as bowel is not moved since Tuesday last CAD: H/O AMI s/p stents x2 Chronic stable stents were placed in 1999 Takes a baby ASA; continue No acute cardiac symptoms HTN: chronic stable Takes HCTZ, Atenolol, Lisinopril, and Amlodipine; continue Blood pressure remains on the upper side at 165/80-we will monitor HLD: chronic stable takes atorvastatin; continue DM2: Chronic stable Takes Metformin and Jardiance; hold while inpt Place on SSI ACHS while inpt and resume home meds on DC Minimally high blood sugar likely secondary to steroid -we will cover Tobacco use: chronic stable 1 ppd at most; declines Nicotine patch Disposition: PCP: [facility] Code status: Full code VTE Prophylaxis: per admitting team Admission and Anticipated Discharge Date Admission Date: January 10, 2023 Subjective 01/11/2023 The patient was seen and examined in medical floor He has been complaining of abdominal discomfort and distention Bowel has not moved since Tuesday last KUB is nonobstructing Review of Systems Review of Systems: All systems reviewed and are unremarkable except as noted below Gastrointestinal: Abdominal discomfort Musculoskeletal: Back pain is reasonable Physical Exam Physical Exam: Sitting on a chair without any acute distress Constitutional: well developed, well nourished, + ill appearing and average body habitus Eyes: PERRL, conjunctivae normal, anicteric sclerae ENMT: external ear and nose normal, oropharynx normal Neck: trachea midline, no thyromegaly Respiratory: no respiratory distress Auscultation: lungs clear to auscultation bilaterally Cardiovascular: Rate/Rhythm: regular rate and regular rhythm; not tachycardic Heart Sounds: normal S2; + abnormal S1 and no murmur Extremities: + edema (Trace edema bilaterally) Gastrointestinal (Abdomen): Inspection/Auscultation: + abdomen distended and normal bowel sounds Percussion/Palpation: abdomen soft; abdomen nontender Musculoskeletal: No acute arthritis involving any joint Neurologic: normal touch/pain/proprioception and moves all extremities; no focal motor deficits Psychiatric: A+Ox3, euthymic affect Lymphatic: no cervical or axillary lymphadenopathy Results & Data Results & Data Vital Signs (Past 12 Hours) Vital Signs Temp Pulse Pulse Resp BP Pulse Ox O2 Del Method 01/11/23 14:19 36.7 C 55 L 16 165/80 H 94 Room Air 01/11/23 11:19 37.2 C 56 L 14 168/58 H 94 Room Air 01/11/23 07:47 36.8 C 58 L 16 180/70 H 89 L Room Air Laboratory Results Short CBC 01/11/23 Range/Units 06:58 WBC 18.39 H (4.8-10.8) K/ul Hgb 14.2 (14.0-18.0) g/dl Hct 42.4 (42.0-52.0) % Plt Count 328 (130-400) K/uL BMP 01/11/23 06:58 Sodium 138 Potassium 3.6 Chloride 101 Carbon Dioxide 28 BUN 28 H Creatinine 1.35 Glucose 185 H Calcium 9.7 Medications Administered Current Inpatient Medications Acetaminophen (Acetaminophen 500 Mg Tab) 1,000 mg PO Q8H PRN PRN Reason: MILD Pain Scale 1,2,3 & Pre PT Stop: 02/09/23 14:31 Last Admin: 01/10/23 23:11 Dose: 1,000 mg Al Hydrox/Mg Hydrox/Simethicone (Aluminum/Magnesium Susp 30 Ml Udc) 30 ml PO Q6H PRN PRN Reason: Dyspepsia Stop: 02/09/23 14:31 Last Admin: 01/10/23 23:11 Dose: 30 ml Amlodipine Besylate (Amlodipine Besylate 5 Mg Tab) 10 mg PO PM DANIELLE Stop: 02/09/23 20:59 Last Admin: 01/10/23 20:35 Dose: 10 mg Aspirin (Aspirin 81 Mg Ectab) 81 mg PO PM DANIELLE Stop: 02/09/23 20:59 Last Admin: 01/10/23 20:35 Dose: 81 mg Atenolol (Atenolol 25 Mg Tablet) 75 mg PO PM DANIELLE Stop: 02/09/23 20:59 Last Admin: 01/10/23 20:36 Dose: Not Given Atorvastatin Calcium (Atorvastatin 40 Mg Tab) 80 mg PO HS DANIELLE Stop: 02/09/23 20:59 Last Admin: 01/10/23 20:34 Dose: 80 mg Bisacodyl (Bisacodyl 10 Mg Supp) 10 mg ME DAILY PRN PRN Reason: Constipation Stop: 02/09/23 14:31 Cyanocobalamin (Cyanocobalamin (B-12) 500 Mcg Tablet) 1,000 mcg PO PM DANIELLE Stop: 02/09/23 20:59 Last Admin: 01/10/23 20:37 Dose: 1,000 mcg Dextrose (Dextrose 50% 50 Ml Syringe) 25 - 50 ml IV UD PRN; Protocol PRN Reason: Hypoglycemia Protocol Stop: 02/09/23 20:52 Diphenhydramine HCl (Diphenhydramine Capsule 25 Mg Cap) 25 mg PO Q6H PRN PRN Reason: Allergic Rhinitis/Insomnia Stop: 02/09/23 14:31 Famotidine (Famotidine 20 Mg Tab) 20 mg PO Q12H PRN PRN Reason: Dyspepsia Stop: 02/09/23 14:31 Last Admin: 01/11/23 01:47 Dose: 20 mg Fenofibrate (Fenofibrate Nanocrystallized 145 Mg Tablet) 145 mg PO DAILY DANIELLE Stop: 02/10/23 08:59 Last Admin: 01/11/23 08:35 Dose: 145 mg Gabapentin (Gabapentin 300 Mg Cap) 600 mg PO QAM [facility] Stop: 02/10/23 08:59 Last Admin: 01/11/23 08:35 Dose: 600 mg Gabapentin (Gabapentin 300 Mg Cap) 900 mg PO TODAY@2200 [facility] Stop: 02/09/23 21:59 Last Admin: 01/10/23 20:59 Dose: 900 mg Gabapentin (Gabapentin 300 Mg Cap) 900 mg PO TODAY@1600 [facility] Stop: 02/09/23 15:59 Last Admin: 01/11/23 15:58 Dose: 900 mg Glucagon (Glucagon For Inj 1 Mg Vial) 1 mg SQ UD PRN; Protocol PRN Reason: Hypoglycemia Protocol Stop: 02/09/23 20:52 Glucose (Glucose 10 Tab/Tube) 4 - 8 tab PO UD PRN; Protocol PRN Reason: Hypoglycemia Treatment Stop: 02/09/23 20:52 Glucose (Glucose 40% Gel 15 Gm Tube) 15 - 30 gm PO UD PRN; Protocol PRN Reason: Hypoglycemia Protocol Stop: 02/09/23 20:52 Hydrochlorothiazide (Hydrochlorothiazide 25 Mg Tab) 25 mg PO PM DANIELLE Stop: 02/09/23 20:59 Last Admin: 01/10/23 20:36 Dose: 25 mg Hydromorphone HCl (Hydromorphone Inj 0.5 Mg/0.5 Ml Syr) 0.5 mg IV Q3H PRN PRN Reason: MODERATE Pain (Scale 4,5,6) & Pre PT Stop: 01/24/23 14:31 Last Admin: 01/11/23 07:53 Dose: 0.5 mg Hydromorphone HCl (Hydromorphone Inj 1 Mg/Ml Syringe) 1 mg IV Q3H PRN PRN Reason: SEVERE Pain (Scale 7,8,9,10) Stop: 01/24/23 14:31 Last Admin: 01/10/23 16:39 Dose: 1 mg Hydroxyzine HCl (Hydroxyzine Hcl 25 Mg Tab) 25 mg PO Q8H PRN PRN Reason: Anxiety Stop: 02/09/23 14:31 Promethazine HCl 12.5 mg/ (Sodium Chloride) 50.5 mls @ 202 mls/hr IV Q6H PRN PRN Reason: Nausea &/or Vomiting Stop: 02/09/23 14:31 Lorazepam 0.5 mg/ Syringe 0.5 mls @ 2 mls/min IV Q8H PRN; Protocol PRN Reason: Sedation/Anxiety Stop: 02/09/23 14:31 Dexamethasone 6 mg/ Syringe 1.5 mls @ 1 mls/min IV DAILY DANIELLE Stop: 01/13/23 09:02 Last Admin: 01/11/23 09:50 Dose: 1 mls/min Influenza Virus Vaccine Quadrival (Do Not Administer Flu Vaccine) 1 each N/A PRN PRN PRN Reason: Notification Stop: 02/09/23 14:31 Insulin Aspart (Insulin Aspart Per Unit Charge) 0 units SC ACHS DANIELLE Stop: 02/09/23 20:59 Last Admin: 01/11/23 12:23 Dose: 5 units Lisinopril (Lisinopril 40 Mg Tab) 40 mg PO PM DANIELLE Stop: 02/09/23 20:59 Last Admin: 01/10/23 20:35 Dose: 40 mg Lorazepam (Lorazepam 0.5 Mg Tab) 0.5 mg PO Q8H PRN PRN Reason: Sedation/Anxiety Stop: 02/09/23 14:31 Magnesium Hydroxide (Magnesium Hydroxide Susp 30 Ml Udc) 30 ml PO Q24H PRN PRN Reason: Constipation Stop: 02/09/23 14:31 Magnesium Oxide (Magnesium Oxide 400 Mg Tab) 400 mg PO PM DANIELLE Stop: 02/09/23 20:59 Last Admin: 01/10/23 20:36 Dose: 400 mg Metoclopramide HCl (Metoclopramide Hcl Inj 5 Mg/Ml 2 Ml Vial) 10 mg IV Q6H PRN PRN Reason: Nausea &/or Vomiting Stop: 02/09/23 14:31 Miscellaneous (Carbohydrates For Hypoglycemia ) 15 - 30 gm PO UD PRN PRN Reason: Hypoglycemia Protocol Stop: 02/09/23 20:52 Multivitamins (Multivitamin Tab) 1 tab PO QAM DANIELLE Stop: 02/10/23 08:59 Last Admin: 01/11/23 08:35 Dose: 1 tab Naloxone HCl (Naloxone Hcl 0.4 Mg/1 Ml Vial/Carp) 0.1 mg IV Q5M PRN PRN Reason: Oversedation/Resp depression Stop: 02/09/23 14:31 Ondansetron HCl (Ondansetron Inj 2 Mg/Ml 2 Ml Vial) 4 mg IV Q6H PRN PRN Reason: Nausea &/or Vomiting Stop: 02/09/23 14:31 Last Admin: 01/11/23 04:20 Dose: 4 mg Ondansetron HCl (Ondansetron 4 Mg Od Tab) 4 mg PO Q6H PRN PRN Reason: Nausea Stop: 02/09/23 14:31 Oxycodone HCl (Oxycodone Hcl Ir 5 Mg Tab (Immediate Release)) 5 - 10 mg PO Q4H PRN PRN Reason: Pain & Pre PT Stop: 01/24/23 14:31 Last Admin: 01/11/23 03:43 Dose: 10 mg Pantoprazole Sodium (Pantoprazole 40 Mg Tab) 40 mg PO QAM DANIELLE Stop: 02/10/23 08:59 Last Admin: 01/11/23 08:35 Dose: 40 mg Pneumococcal Polyvalent Vaccine (Do Not Administer Pneumococcal Vaccine) 1 each N/A PRN PRN PRN Reason: Notification Stop: 02/09/23 14:31 Polyethylene Glycol (Polyethylene (Miralax) 17 Gm Pack) 17 gm PO Q6 DANIELLE Stop: 02/10/23 05:59 Last Admin: 01/11/23 12:23 Dose: Not Given Senna/Docusate Sodium (Docusate Sodium/Senna 50/8.6mg Tab) 2 tab PO HS DANIELLE Stop: 02/09/23 20:59 Last Admin: 01/10/23 20:36 Dose: 2 tab Simethicone (Simethicone 80 Mg Chew) 80 mg PO Q6H PRN PRN Reason: Gas or Constipation Stop: 02/10/23 02:47 Last Admin: 01/11/23 11:22 Dose: 80 mg Sodium Biphosphate/Sodium Phosphate (Sod Phosphate/Sod Biphosphate Enema 132 Ml Btl) 132 ml ME ONE PRN PRN Reason: Constipation Stop: 02/09/23 14:31 Tramadol HCl (Tramadol Hcl 50 Mg Tablet) 50 - 100 mg PO Q4H PRN PRN Reason: Moderate-Severe pain & Pre PT Stop: 02/09/23 14:31 Vitamin D (Cholecalciferol 1,000 Units 25 Mcg Tab) 1,000 units PO PM DANIELLE Stop: 02/09/23 20:59 Last Admin: 01/10/23 20:35 Dose: 1,000 units
[2023-01-11] MEDS: amLODIPine BESYLATE 5 MG TAB PO SCH (20:48)
[2023-01-11] MEDS: ATENOLOL 25 MG TABLET PO SCH (20:48)
[2023-01-11] MEDS: ASPIRIN 81 MG ECTAB PO SCH (20:48)
[2023-01-11] MEDS: hydroCHLOROthiazide 25 MG TAB PO SCH (20:49)
[2023-01-11] MEDS: lisinopril 40 MG TAB PO SCH (20:49)
[2023-01-11] MEDS: CYANOCOBALAMIN (B-12) 500 MCG TABLET PO SCH (20:49)
[2023-01-11] MEDS: ATORVASTATIN 40 MG TAB PO SCH (20:49)
[2023-01-11] MEDS: MAGNESIUM OXIDE 400 MG TAB PO SCH (20:49)
[2023-01-11] MEDS: CHOLECALCIFEROL 1,000 UNITS 25 MCG TAB PO SCH (20:49)
[2023-01-11] MEDS: DOCUSATE SODIUM/SENNA 50/8.6MG TAB PO SCH (21:07)
[2023-01-12] MEDS: POLYETHYLENE (MIRALAX) 17 GM PACK PO SCH ×4 (00:44→18:28)
[2023-01-12] MEDS: traMADol HCL 50 MG TABLET PO PRN (05:25)
[2023-01-12 06:01] LABS: Basophils # (auto) 0.06 K/uL (0.00-0.20); Basophils % (auto) 0.3 %; Eosinophils # (auto) 0.24 K/uL (0.00-0.50); Eosinophils % (auto) 1.1 %; Hematocrit (blood only) 41.8 % (42.0-52.0); Hemoglobin 14.2 g/dl (14.0-18.0); Immature Granulocytes # (auto) 0.09 K/uL (0.01-0.20); Immature Granulocytes % (auto) 0.4 %; Mean Corpuscular Hemoglobin 30.3 pg (25.0-34.0); Mean Corpuscular Volume 89.1 fL (80.0-100.0); Mean Platelet Volume 9.8 fL (9.4-12.4); Monocytes # (auto) 1.73 K/uL (0.11-0.59); Neutrophils # (auto) 16.87 K/uL (1.40-6.50); Neutrophils % (auto) 78.2 %; Platelet Count 323 K/uL (130-400); RDW Coefficient of Variation 14.5 % (11.5-14.5); RDW Standard Deviation 46.4 fL (36.4-46.3); Red Blood Count 4.69 M/uL (4.70-6.10); White Blood Count 21.59 K/ul (4.8-10.8)
[2023-01-12 06:15] LABS: BUN Creatinine Ratio 17.8 (10-20); Creatinine Clr Calc Pharmacy 62.2 ml/min; Est GFR (African American) 61.2 ml/min; Est GFR (Non-African American) 52.8 ml/min
[2023-01-12] MEDS: INSULIN ASPART PER UNIT CHARGE SC SCH ×4 (08:29→22:15)
[2023-01-12] MEDS: dexAMETHasone 6 MG in SYRINGE 0 ML IV SCH (08:30)
[2023-01-12] MEDS: FENOFIBRATE NANOCRYSTALLIZED 145 MG TABLET PO SCH (08:30)
[2023-01-12] MEDS: GABAPENTIN 300 MG CAP PO SCH ×3 (08:30→22:03)
[2023-01-12] MEDS: PANTOprazole 40 MG TAB PO SCH (08:31)
[2023-01-12] MEDS: MULTIVITAMIN TAB PO SCH (08:31)
[2023-01-12] MEDS: bisacodyL 10 MG SUPP PR PRN ×2 (08:36→15:14)
--- NOTE | 2023-01-12 08:43 | Orthopedic Progress Note ---
Date of Service January 12, 2023 Assessment & Plan (1) Lumbar spinal stenosis: Plan: Luis Carlos is postoperative day 2 status post L3-4 decompression and fusion. He is doing well. We will continue with physical therapy today. Maintain DO drain. Work on bowel regimen today. DVT prophylaxis is in the form of teds and SCDs. Continue ambulation. Most likely will discharge him home tomorrow Admission and Anticipated Discharge Date Admission Date: January 10, 2023 Subjective Luis Carlos is postoperative day 2 status post L3-4 decompression and fusion. He is doing well. Left hip pain that he had preoperatively has resolved. Back pain is controlled. Passing flatus but no bowel movement. Physical therapy Amling 100 feet. H&H this morning are 14.2 and 41.8 respectively. Review of Systems Review of Systems: All systems reviewed & are unremarkable except as noted in HPI & below Physical Exam Physical Exam: Alert and oriented x3 Sitting on the edge of the bed in no acute distress lumbar dressing is clean dry and intact with functioning DO drain Calf soft nontender bilaterally strength intact bilateral lower extremities Results & Data Vital Signs (Past 12 Hours) Vital Signs Temp Pulse Resp BP Pulse Ox O2 Del Method 01/12/23 07:35 Room Air 01/12/23 07:17 36.8 C 51 L 16 160/66 H 95 Room Air
--- NOTE | 2023-01-12 19:46 | Hospitalist Progress Note ---
Date of Service January 12, 2023 Assessment & Plan (1) Lumbar spinal stenosis: (2) Diabetes mellitus, type 2: (3) CAD (coronary artery disease): (4) Pulmonary hypertension: (5) Aortic stenosis: (6) Tobacco abuse: (7) HTN (hypertension): (8) Hyperlipemia: Plan Mr. Nobles is a 72 year old male that presents to the [facility] for an elective decompression and fusion surgery under the care of Dr. Blanco after failed conservative outpatient therapy for lumbar spinal stenosis with neurogenic claudication. He underwent an L2-L3; L3-L4 decompression and fusion. Additional PMH includes: NIDDM2, HTN, HLD, tobacco use, and GERD. Additional PMH includes previous AMI s/p stent placement x2 in 1999. Pt sitting upright in his hospital bed in no apparent distress. He just finished eating a clear liquid diet without any symptoms, including nausea. Pt is passing flatulence. Denies CHENG, neuropathy, dizziness, CP, SOB, abdominal pain, recent falls or trauma. Lumbar spinal stenosis: Operative day 01/10/2023 s/p decompression/fuson L2-L3; L3-L4 with Dr. Blanco. Per ortho for pain control, wound care, anticoagulation and activities. Monitor H&H, pre op Hgb 16.4 on 12/27/22 continue incentive spirometry PT/OT when appropriate Remains stable following procedure with minimal back pain and is still having significant drainage Management will be as per spine surgeon Hemoglobin remains stable and white count is minimally elevated due to steroid Electrolytes and kidney function are normal We will monitor labs Abdominal pain/discomfort Clinically abdomen is distended but nontender and soft KUB did not show any obstruction Will give MiraLAX for bowel movement as bowel is not moved since Tuesday last CAD: H/O AMI s/p stents x2 Chronic stable stents were placed in 1999 Takes a baby ASA; continue No acute cardiac symptoms HTN: chronic stable Takes HCTZ, Atenolol, Lisinopril, and Amlodipine; continue Blood pressure remains on the upper side at 165/80-we will monitor HLD: chronic stable takes atorvastatin; continue DM2: Chronic stable Takes Metformin and Jardiance; hold while inpt Place on SSI ACHS while inpt and resume home meds on DC Minimally high blood sugar likely secondary to steroid -we will cover Tobacco use: chronic stable 1 ppd at most; declines Nicotine patch Disposition: PCP: [facility] Code status: Full code VTE Prophylaxis: per admitting team Admission and Anticipated Discharge Date Admission Date: January 10, 2023 Results & Data Results & Data Vital Signs (Past 12 Hours) Vital Signs Temp Pulse Resp BP Pulse Ox O2 Del Method 01/12/23 15:30 36.3 C L 57 L 20 139/66 95 Room Air
[2023-01-12] MEDS: ATENOLOL 25 MG TABLET PO SCH (22:02)
[2023-01-12] MEDS: hydroCHLOROthiazide 25 MG TAB PO SCH (22:02)
[2023-01-12] MEDS: ASPIRIN 81 MG ECTAB PO SCH (22:03)
[2023-01-12] MEDS: MAGNESIUM OXIDE 400 MG TAB PO SCH (22:03)
[2023-01-12] MEDS: amLODIPine BESYLATE 5 MG TAB PO SCH (22:03)
[2023-01-12] MEDS: CHOLECALCIFEROL 1,000 UNITS 25 MCG TAB PO SCH (22:04)
[2023-01-12] MEDS: ATORVASTATIN 40 MG TAB PO SCH (22:04)
[2023-01-12] MEDS: CYANOCOBALAMIN (B-12) 500 MCG TABLET PO SCH (22:04)
[2023-01-12] MEDS: lisinopril 40 MG TAB PO SCH (22:04)
[2023-01-12] MEDS: DOCUSATE SODIUM/SENNA 50/8.6MG TAB PO SCH (22:07)
[2023-01-13] MEDS: traMADol HCL 50 MG TABLET PO PRN (04:10)
[2023-01-13] MEDS: GABAPENTIN 300 MG CAP PO SCH (08:19)
[2023-01-13] MEDS: dexAMETHasone 6 MG in SYRINGE 0 ML IV SCH (08:19)
[2023-01-13] MEDS: MULTIVITAMIN TAB PO SCH (08:21)
[2023-01-13] MEDS: FENOFIBRATE NANOCRYSTALLIZED 145 MG TABLET PO SCH (08:21)
[2023-01-13] MEDS: PANTOprazole 40 MG TAB PO SCH (08:21)
[2023-01-13] MEDS: INSULIN ASPART PER UNIT CHARGE SC SCH ×2 (08:25→11:58)
--- NOTE | 2023-01-13 09:15 | Discharge Summary ---
Date of Service January 13, 2023 Admission HPI Per Admitting Provider This is a 72-year-old male who presents with chronic persistent back and leg pain after failing since course of nonoperative care is here for surgical invention. Principal Diagnosis Lumbar spinal stenosis with neurogenic claudication Discharge Data Allergies Allergy/AdvReac Type Severity Reaction Status Date / Time No Known Allergies Allergy Mild Verified 01/10/23 08:32 Consultations 01/10/23 14:32 Consult Hospitalist Routine Procedures Performed Operation Date: 01/10/23 09:35 Actual Procedures p L3-L4 Decompression and Fusion with Spinal Cord Monitoring(Not Applicable) - Efra Blanco DO Ordered Studies 01/10/23 [place] lumbar spine 2-3V Routine Hospital Course (1) Lumbar spinal stenosis: Patient 1 lumbar decompression fusion tolerated as well as negative orthopedic for postoperative. Postop day 1 is up and ambulating progressed this hospital course appropriately. Pain well controlled. DO drain decreasing probably. Extra strength testing. Simply discharged home. Discharge orders instructions on chart for further review. Total Time Total Time Spent Total Time Spent (In Minutes): 20 minutes Discharge Plan Discharge Items Patient Disposition: Home - Self-Care Reason For Visit: Spinal Stenosis, Lumbar Region with Neurogenic Cla Discharge Diagnosis: Lumbar spinal stenosis with neurogenic claudication Activity: As commented below Non-emergency contact: Primary Care Provider Call non-emergency contact if: you have any medication questions Follow-up/Referrals: Nate Kumari DO [Outside Practitioners] - Diet: Regular Addtl Attending Provider Instructions: ACTIVITY RECOMMENDATIONS: SELF CARE INSTRUCTIONS AFTER THORACIC/LUMBAR FUSIONS 1. You may walk to your tolerance. It is good exercise for your legs and back. Expect some back and intermittent leg aches and pains. 2. You may perform "counter-top" level activities (make a sandwich, simin with a project, etc.). 3. No bending or lifting of more than 10 pounds or back twisting of any nature (roll like a log when turning in bed). 4. You may ride in a car for 20-30 minutes at a time. No driving until after your first visit with your doctor. 5. Frequent changes of position and restricting sitting to 30 minutes at a time will help limit the amount of back spasms and stiffness you may experience. 6. You may discontinue the use of ambulatory aids (cane, crutches, etc.) once your strength and confidence allow. 7. You may in home sales representative the shower and let water strike your incision when you arrive home at least once daily. Do not take a tub bath, sit in a hot tub or go into a swimming pool until after your first recheck in the office. SPECIAL CARE INSTRUCTIONS: VERY IMPORTANT TO READ AND REVIEW A. Your surgical incision has been closed with a cosmetic suture under the skin that will dissolve in about 6 weeks. In 14 days, you can use a pair of clean scissors and cut the suture that is left outside of the skin at the ends of your incision. 1. The small skin tapes can be removed 7 days after surgery if they have not fallen off by that point. 2. You may keep the wound open to air as much as possible to promote healing after post-op day number 5 unless told otherwise by your doctor. 3. If you think the wound looks like it is becoming infected (redness or worsening drainage) and/or you are experiencing fever, chill or worsening back pain and muscle spasms, contact the office so that we may evaluate you as soon as possible. B. Complications are uncommon, but please contact us if you have any signs or symptoms of: 1. wound infection (fever higher than 102.5 degrees F, redness, separation of wound, drainage, or increasing pain from the incision) 2. blood clots in legs (pain, swelling, redness and warmth in legs) 3. urinary tract infection (fever higher than 102.5 degrees F, burning upon urination or increased frequency of urination) 4. nerve problems (inability to walk on your toes or heels, numbness, loss of bowel or bladder control) 5. any other symptoms that concern you C. Please call the office at if you have any concerns or questions about your operation or recovery. D. No smoking! Smoking drastically decreases the chance of a solid fusion. E. Do not take any anti-inflammatory medications (Indocin, Advil, Motrin, Aspirin, Naprosyn, etc.) as these may inhibit the chance of a solid fusion. Tylenol is okay to take for pain. MANAGING PAIN AFTER SPINAL SURGERY 1. Narcotic medication is intended for short-term use and will be provided for surgical pain. Surgical pain usually lasts for a period of 4-6 weeks. Narcotic medication includes Percocet, Vicodin, Darvocet, Tylenol #3 or Lortab. 2. Longer-term pain is more appropriately treated with non-narcotic medication such as Tylenol ES. 3. Muscle spasm is not appropriately treated with narcotics. Muscle relaxers such as Soma, Flexeril or Skelaxin can be used along with Tylenol ES. 4. Remember that we all live with some "aches and pains". This is not unusual or uncommon after an injury or as we get older. a. Back pain is expected and may include muscle spasms for 4 to 6 weeks after surgery. The pain should gradually improve. If the pain worsens for no apparent reason, please contact the office. b. Intermittent leg pain may also be experienced and should not be concerned about unless it worsens for no apparent reason. If so, please contact the office. 5. We will provide appropriate medication within the normal guidelines of their prescribed use. We will also be very cautious and aware of potential abuse and extended duration of patients' medication needs. a. Pain medications are for your comfort and to assist with sleep and rest so that the tissue can heal. They are not provided in order to return to normal activity and should not be used through the day. To do so or worsening pain at night can result from ongoing tissue damage and development of tolerance to the prescribed medicine. 6. Please allow 2-3 days to process refills. Prescriptions will not be mailed but must be picked up at the office. FOLLOW UP VISIT: Keep your scheduled follow-up appointment. Any questions, please call the office at . Pending Studies at Discharge: No Stand-Alone Forms: [facility] [employer], Smoking Cessation Medications and DC Order Prescriptions: New tramadol 50 mg tablet 50 mg PO Q6H PRN (Reason: pain, moderate) Qty: 30 0RF oxycodone 5 mg tablet 5 mg PO Q6H PRN (Reason: pain) Qty: 30 0RF Continued gabapentin 300 mg capsule 900 mg PO HS CBD drops 1 drp sublingual DIRECTED PRN (Reason: Pain) gabapentin 300 mg capsule 900 mg PO PM amlodipine 10 mg tablet 10 mg PO PM atorvastatin 80 mg tablet 80 mg PO HS hydrochlorothiazide 25 mg tablet 25 mg PO PM lisinopril 40 mg tablet 40 mg PO PM omega-3 fatty acids 1,000 mg capsule 1,000 mg PO PM multivitamin [Multiple Vitamins] tablet 1 tab PO QAM aspirin [Adult Aspirin Regimen] 81 mg tablet,delayed release (DR/EC) 81 mg PO PM cholecalciferol (vitamin D3) 2,000 unit tablet 1,000 units PO PM gabapentin 300 mg capsule 600 mg PO QAM cephalexin 500 mg capsule 500 mg PO BID Qty: 20 0RF Rx Instructions: One tab PO BID starting day before procedure, continue for 10 days. diazepam 5 mg tablet 5 mg PO .COMPLEX Qty: 3 0RF Rx Instructions: 5 mg PO; 1 tab PO qhs night prior, then 1.5 hours before procedure, then may repeat 0.5 hours prior to procedure if still anxious; if not anxious 30 mins prior, then save for after in case you have spasms metformin 500 mg Tablet 500 mg PO BID magnesium oxide 420 mg Tablet 420 mg PO PM atenolol 25 mg Tablet 75 mg PO PM cyanocobalamin (vitamin B-12) 1,000 mcg Tablet 1,000 mcg PO PM hydrocodone-acetaminophen 10-325 mg Tablet 1 tab PO TID omeprazole 20 mg Tablet,Delayed Release (Dr/Ec) 20 mg PO QAM fenofibrate nanocrystallized 145 mg Tablet 145 mg PO DAILY Jardiance 25 mg Tablet 25 mg PO DAILY Discharge Orders: Discharge Order (Routine); Ordered 01/13/23 Ordered By: Efra Blanco Admission Data Admit Date/Time: 01/10/23 11:44 Attending Provider: Efra Blanco Admit Provider: Efra Blanco Primary Care Provider: [facility] Other Providers: Lucinda Kelly; Jayden Garza
== END 2023-01-13 12:13 | disposition home or self-care (01) | DRG 455 ==
LOC: ASU 08:09 → PACUINP 11:44 → 3N 15:57
DX: Z98.1 Arthrodesis status; E78.5 Hyperlipidemia, unspecified; I25.2 Old myocardial infarction; F17.210 Nicotine dependence, cigarettes, uncomplicated; M48.062 Spinal stenosis, lumbar region with neurogenic claudication; Z79.82 Long term (current) use of aspirin; Z95.5 Presence of coronary angioplasty implant and graft; I27.20 Pulmonary hypertension, unspecified; E11.51 Type 2 diabetes mellitus with diabetic peripheral angiopathy without gangrene; I10 Essential (primary) hypertension; I25.10 Atherosclerotic heart disease of native coronary artery without angina pectoris; I35.0 Nonrheumatic aortic (valve) stenosis